=== PATIENT | female | born 1995 | race Hispanic/Latino ===

== ENCOUNTER 2022-07-07 16:01 | Emergency (ER) | payer MEDICAID, OTHER ==
[~2022-07-07] VITALS: Ht 157.5 cm; Wt 59.0 kg
[2022-07-07 16:18] VITALS: BP 133/79
[2022-07-07 16:47] LABS: BASOPHILS % (AUTO) 0.2 % (0.0-5.0); EOSINOPHILS % (AUTO) 0.5 % (0.0-8.0); LYMPHOCYTES % (AUTO) 17.8 % (21.0-51.0); MEAN CORPUSCULAR HEMOGLOBIN 30.4 pg (27.0-33.0); MEAN CORPUSCULAR HGB CONC 34.9 g/dL (32.0-36.0); MEAN CORPUSCULAR VOLUME 87.2 fL (79-99); MONOCYTES % (AUTO) 7.1 % (3.0-13.0); NEUTROPHILS % (AUTO) 73.9 % (40.0-77.0); PLATELET COUNT (AUTO) 271 K/uL (130-400); RED BLOOD CELL COUNT(AUTO) 4.47 MIL/uL (4.00-5.50); RED CELL DISTRIBUTION WIDTH 11.6 % (11.0-15.5); WHITE BLOOD COUNT (AUTO) 9.9 K/uL (4.8-10.8)
[2022-07-07 16:50] LABS: APPEARANCE,URINE CLOUDY (CLEAR); BILIRUBIN,URINE NEGATIVE (NEGATIVE); COLOR,URINE YELLOW (YELLOW); GLUCOSE, URINE (UA) NEGATIVE (NEGATIVE); KETONES,URINE 60 mg/dL (NEGATIVE); LEUKOCYTE ESTERASE ,URINE NEGATIVE Leu/uL (NEGATIVE); NITRATE,URINE NEGATIVE (NEGATIVE); OCCULT BLOOD,URINE NEGATIVE (NEGATIVE); PROTEIN,URINE 20 mg/dL (NEGATIVE); UROBILINOGEN,URINE 0.2 mg/dL (0.2-1.0)
[2022-07-07 16:55] LABS: CREATININE 0.7 mg/dL (0.5-1.5); POTASSIUM 3.6 mmol/L (3.5-5.1)
[2022-07-07 17:20] LABS: BACTERIA,URINE RARE /HPF (None Seen); MUCUS,URINE MOD LPF (None Seen); OTHER CASTS, URINE 2 /LPF (None Seen); SQUAMOUS EPITHELIAL CELL,UR MOD /HPF (0-2)
[2022-07-07 17:24] LABS: ALBUMIN 3.9 g/dL (3.5-5.0); TOTAL PROTEIN, SERUM 7.7 g/dL (6.0-8.3)
[2022-07-07] MEDS ORDERED: PREN-61 PO (17:53)
[2022-07-07] MEDS ORDERED: CEPH500B PO (17:53)
[2022-07-07] MEDS ORDERED: LIDOCAINE HCL 1% 10 ML VIAL ONE (17:56)
[2022-07-07] MEDS ORDERED: CEFTRIAXONE 1G VIAL ONE (17:56)
[2022-07-07] MEDS ORDERED: CEFTRIAXONE 1G VIAL IM ONE (18:00)
[2022-07-07] MEDS ORDERED: ONDA4TAB10 PO (18:09)
== END 2022-07-07 18:06 | disposition home or self-care (01) ==
LOC: EDH 16:01
DX: O23.41 Unspecified infection of urinary tract in pregnancy, first trimester (principal); N39.0 Urinary tract infection, site not specified; Z3A.01 Less than 8 weeks gestation of pregnancy
CPT/HCPCS: 99283; 80053; 84702; 83690; 85025; 87088; 81001; 36415; 96372; J0696; J3490

== ENCOUNTER 2025-01-28 13:19 | Emergency (ER) | payer MEDICAID ==
[~2025-01-28] VITALS: Ht 160 cm; Wt 76.7 kg
[~2025-01-28 13:19] MED LIST: CEPH500B PO; ONDA-243 PO; PREN-61 PO
[2025-01-28 16:06] LABS: HCG,QUALITATIVE URINE POSITIVE (NEGATIVE)
[2025-01-28 16:25] LABS: APPEARANCE,URINE CLEAR (CLEAR); BILIRUBIN,URINE NEGATIVE (NEGATIVE); COLOR,URINE YELLOW (YELLOW); GLUCOSE, URINE (UA) NEGATIVE (NEGATIVE); KETONES,URINE NEGATIVE (NEGATIVE); LEUKOCYTE ESTERASE ,URINE NEGATIVE Leu/uL (NEGATIVE); NITRATE,URINE NEGATIVE (NEGATIVE); OCCULT BLOOD,URINE NEGATIVE (NEGATIVE); PH,URINE 6.5 (5.0-8.0); PROTEIN,URINE NEGATIVE (NEGATIVE); UROBILINOGEN,URINE 0.2 mg/dL (0.2-1.0)
[2025-01-28 16:28] LABS: MUCUS,URINE RARE LPF (None Seen); RBC,URINE 0-1 /HPF (0-1); SQUAMOUS EPITHELIAL CELL,UR MANY /HPF (0-2)
--- NOTE | 2025-01-28 16:39 | ERN ---
General Chief Complaint: Test Stated Complaint: POSSIBLE , MULTIPLE Time Seen by MD: 13:24 Time Seen by Midlevel: 13:24 Source: patient History of Present Illness Initial Comments 29-year-old female presents to the emergency department stating she has been feeling a bit six, nausea, vomiting, weakness therefore thinks she may be . Patient reports she has been having darker urine but denies any dysuria, hematuria, vaginal bleeding, abdominal pain or further associated symptoms. Denies significant past medical history. Allergies: Coded Allergies: No Known Drug Allergies (Unverified Allergy, Unknown, 07/07/22) Home Meds Active Scripts Ondansetron (Ondansetron Odt) 4 Mg Tab.rapdis, 4 MG PO TIDP, #30 TAB Prov:CHRISTY STEINER 07/07/22 Vit No.78/Iron/FA (Prenatabs FA Tablet) 1 Each Tablet, 1 EACH PO DAILY for 100 Days, #100 TAB Prov:CHRISTY STEINER 07/07/22 Cephalexin Monohydrate (Keflex) 500 Mg Cap, 500 MG PO TID for 7 Days, #21 CAP Prov:CHRISTY STEINER 07/07/22 Past Medical History Past Medical History: No Pertinent History Past Surgical History: None Family History Family History: Negative Social History Social History: Lives with family Female( History) : 0 Para: 0 Aborts: 0 ROS Dictation Constitutional: Positive for generalized weakness Negative for fever,chills, and weight loss Eyes: Negative for injury, pain,redness, and discharge ENT: Negative for injury,pain or swelling Cardiovascular: Negative for chest pain, palpitations, and edema Respiratory: Negative for shortness of breath, cough, and wheezing, Abdomen/GI: Positive for nausea, vomiting Negative for abdominal pain, diarrhea, and constipation Back: Negative for injury and pain : Negative for painful urination, bleeding or discharge MS/Extremity: Negative for injury and deformity Skin: Negative for rash, and discoloration Neuro: Negative for headache, weakness, numbness, tingling, and seizure Psych: Negative for suicide ideation, homicidal ideation, and hallucinations Physical Exam Physical Exam Dictation General: awake, alert, no acute distress Head/Face: Normocephalic, atraumatic Eyes: PERRL, EOMI, normal conjunctiva ENT: oral cavity clear, oral mucosa moist Neck: Supple, normal range of motion Cardiovascular: RRR, normal S1/S2 Respiratory: CTAB, no respiratory distress, no rales or wheezes Abdomen: Soft, non-tender, non-distended, no guarding or rebound. Skin: Warm, dry, normal turgor, no rash MS/Extremity: Pulses equal, no cyanosis, neurovascular intact, FROM Neuro: COAx4, GCS 15, strength 5/5, CN 2-12 intact, normal cerebellar exam, normal gait, Psych: Normal behavior, mood, and affect normal Results Laboratory and Microbiology Lab and Micro Result Laboratory Tests Test 01/28/25 14:53 Urine Color YELLOW (YELLOW) Urine Appearance CLEAR (CLEAR) Urine pH 6.5 (5.0-8.0) Urine Specific [place] 1.025 (1.001-1.031) Urine Protein NEGATIVE mg/dL (NEGATIVE) Urine Glucose (UA) NEGATIVE mg/dL (NEGATIVE) Urine Ketones NEGATIVE mg/dL (NEGATIVE) Urine Occult Blood NEGATIVE (NEGATIVE) Urine Nitrate NEGATIVE (NEGATIVE) Urine Bilirubin NEGATIVE mg/dL (NEGATIVE) Urine Urobilinogen 0.2 mg/dL (0.2-1.0) Urine Leukocyte Esterase NEGATIVE [place]/uL Urine RBC 0-1 /HPF (0-1) Urine WBC 2-5 /HPF (0-1) H Urine Squamous Epithelial Cells MANY /HPF (0-2) Urine Bacteria None /HPF (None Seen) Urine Hyaline Casts 2-5 /LPF (0-1 /LPF) H Urine HCG, Qualitative POSITIVE (NEGATIVE) H Labs Reviewed?: Yes MDM MDM: Differential diagnosis: , UTI Rationale:29-year-old female presents to the emergency department stating she has been feeling a bit six, nausea, vomiting, weakness therefore thinks she may be . Patient reports she has been having darker urine but denies any dysuria, hematuria, vaginal bleeding, abdominal pain or further associated symptoms. Denies significant past medical history. Per physical examination patient is in no acute distress, nonlabored breathing, nontoxic appearing. UA obtained negative for UTI. Urine positive. Patient denies any current symptoms. Patient was educated on findings and diagnosis. Advised to follow up with PCP and OBGYN. Return to the emergency department if any worsening symptoms. Patient verbalized understanding. Patient stable for discharge. There are no social concerns with this patient. I independently interpreted the test that were performed, results were reviewed by me and considered findings on radiology if ordered. Medical management and examination interpretation discussions were had by me with other qualified healthcare professionals as indicated for the patient's care. ED Course Orders Procedure Category Date Status Time Urinalysis LAB 01/28/25 Complete W/Microscopic 13:33 ,Urine Test LAB 01/28/25 Complete 13:33 Vital Signs Date Time Temp Pulse Resp B/P (MAP) Pulse Ox O2 Delivery O2 Flow Rate FiO2 01/28/25 16:45 97.9 87 18 132/68 98 Room Air* 0 21 01/28/25 15:31 97.9 87 18 134/77 98 Room Air* 0 21 01/28/25 13:29 97 16 148/100 98 Room Air 0 DX & DISP Disposition: Discharge Departure Impression: Primary Impression: Condition: Stable Additional Instructions: Discharge home. Rest. Follow up with primary care Dr. in 24 hours. Return to the ER for any acute changes or worsening symptoms. If any medications were prescribed take as directed. Okay to continue home medications unless otherwise discussed during your visit in the emergency room today. Patient was also advised to follow-up with primary care physician in 1 to 2 days for continued monitoring. Referrals: SELF,REFERRAL (PCP) ROCKY QUISPE MD, JAROD N MD I performed the substantive portion of the visit. I have reviewed and personally made and approve the management plan that is documented in the notes by myself or the KIRSTEN. I acknowledge full responsibility for the patient's management plan. RHONDA ROGERS January 28, 2025 16:38
[2025-01-28 16:45] VITALS: BP 132/68; PULSE 87; RESP 18; TEMP 97.9; O2SAT 98
== END 2025-01-28 16:51 | disposition home or self-care (01) ==
LOC: EDH 13:19
DX: Z32.01 Encounter for pregnancy test, result positive (principal); Z79.899 Other long term (current) drug therapy
CPT/HCPCS: 81001; 81025; 99283